=== PATIENT | male | born 1955 | race Caucasian/White ===

== ENCOUNTER 2020-04-13 12:02 | Outpatient (CLI) | payer BC ==
--- NOTE | 2020-04-13 15:58 | XRAY Report ---
PROCEDURE: Shoulder 3 View LT INDICATIONS: CONTUSION OF LEFT SHOULDER TECHNIQUE: 3 views of the shoulder were acquired. COMPARISON: None. FINDINGS: Bones: No fractures. There is slight inferior subluxation of the humeral head at the glenohumeral zach int space. No suspicious bony lesions. Visualized ribs appear intact. Soft tissues: No suspicious soft tissue calcifications. IMPRESSION: Mild inferior subluxation of the humeral head at the glenohumeral joint space. No visual ized acute fracture. However, occult injury cannot be excluded. Recommend short interval imaging foll ow-up in 7-10 days as clinically indicated for additional evaluation. Reviewed by: Desiree Scott MD on 04/13/2020 3:57 PM PDT Approved by: Desiree Scott MD on 04/13/2020 3:57 PM PDT Station ID: [id number]
== END 2020-04-13 12:03 | disposition home or self-care (01) ==
LOC: DI.S 12:02
PROVIDERS: ATTEND Registered Nurse
DX: S40.012A Contusion of left shoulder, initial encounter (principal)